=== PATIENT | male | born 2000 | race Caucasian/White ===

== ENCOUNTER 2023-11-22 23:40 | Emergency (ER) | payer BC, SELFPAY ==
[2023-11-22 23:42] VITALS: BP 169/81
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
[2023-11-22] MEDS: DILAUDID 1 MG IM (23:58)
== END 2023-11-23 01:26 | disposition home or self-care (01) ==
LOC: EMR 23:40
PROVIDERS: EMERGENCY PHYSICIAN Student in an Organized Health Care Education/Training Program
DX: S62.002A Unspecified fracture of navicular [scaphoid] bone of left wrist, initial encounter for closed fracture (principal); S52.122A Displaced fracture of head of left radius, initial encounter for closed fracture; V00.141A Fall from scooter (nonmotorized), initial encounter; J45.909 Unspecified asthma, uncomplicated; F17.290 Nicotine dependence, other tobacco product, uncomplicated
CPT/HCPCS: 99283; 29125; 96372; 73080; 73110